=== PATIENT | male | born 1985 | race Caucasian/White ===

== ENCOUNTER 2018-05-04 20:26 | Inpatient (IN) | payer OTHER ==
[~2018-05-04] VITALS: Ht 166.4 cm; Wt 72.5 kg
[2018-05-05] VITALS (10 sets, daily range): BP systolic 120–127; BP diastolic 68–87; PULSE 61–78; RESP 14–17; Ht 166.4 cm; Wt 72.5 kg
[2018-05-05] MEDS ORDERED: ONDANSETRON 4 MG INJ IV PRN (02:00)
[2018-05-05] MEDS ORDERED: ACETAMINOPHEN 325 MG TAB PO PRN (02:00)
[2018-05-05] MEDS ORDERED: NACL 0.9% 3 ML SYG IV SCH (02:00)
[2018-05-05] MEDS ORDERED: NITROGLYCERIN (SL) 0.4 MG TAB SL PRN (02:00)
[2018-05-05] MEDS ORDERED: ALBUTEROL/IPRATROPIUM (NEB) 3 ML AMP HHN PRN (02:00)
--- NOTE | 2018-05-05 04:55 | HP ---
Date/Time of Note Date/Time of Note DATE: 05/05/18 TIME: 04:43 Assessment/Plan VTE Prophylaxis Pharmacological prophylaxis: heparin Lines/Catheters IV Catheter Type (from Nrsg): Saline Lock Assessment/Plan Assessment/Plan 32-year-old male with no significant past medical history with chest pain and abnormal EKG. Rule out ACS PLAN Telemetry monitoring Supplemental oxygen aspirin. As needed nitro A1c, fasting lipid, TSH in a.m. Trend troponin 2D echo and cardiology consult Result Diagram: 05/04/18221905/04/182219 Results 24hrs Laboratory Tests Test 05/04/18 22:20 05/05/18 03:15 White Blood Count 11.1 H Red Blood Count 5.15 Hemoglobin 14.9 Hematocrit 45.1 Mean Corpuscular Volume 87.6 Mean Corpuscular Hemoglobin 28.9 L Mean Corpuscular Hemoglobin Concent 33.0 Red Cell Distribution Width 12.8 Platelet Count 373 Mean Platelet Volume 9.1 Immature Granulocytes % 0.200 Neutrophils % 66.3 Lymphocytes % 21.2 Monocytes % 7.9 Eosinophils % 3.8 Basophils % 0.6 Nucleated Red Blood Cells % 0.0 Immature Granulocytes # 0.020 Neutrophils # 7.4 Lymphocytes # 2.4 Monocytes # 0.9 Eosinophils # 0.4 Basophils # 0.1 Nucleated Red Blood Cells # 0.0 Sodium Level 143 Potassium Level 4.2 Chloride Level 102 Carbon Dioxide Level 29 Anion Gap 12 Blood Urea Nitrogen 22 H Creatinine 0.90 Est Glomerular Filtrat Rate mL/min > 60 Glucose Level 94 Calcium Level 9.7 Total Bilirubin 0.1 L Direct Bilirubin 0.00 Indirect Bilirubin 0.1 Aspartate Amino Transf (AST/SGOT) 35 Alanine Aminotransferase (ALT/SGPT) 40 Alkaline Phosphatase 112 Troponin I < 0.012 < 0.012 B-Type Natriuretic Peptide 11 Total Protein 7.8 Albumin 4.6 Globulin 3.20 Albumin/Globulin Ratio 1.43 Lipase 29 Creatine Kinase 219 H Creatine Kinase Index 0.8 Creatinine Kinase MB (Mass) 1.83 HPI/ROS Admit Date/Time Admit Date/Time Hx of Present Illness This is a 32-year-old male with no significant past medical history who presented to the ER after sent by PCP for chest pain and abnormal EKG. Chest pain has been going on for about 3 weeks. It substernal and also left-sided. Denied associated nausea/vomiting, diaphoresis or shortness of breath. EKG shows ST depressions. Troponin negative. Chest x-ray without active findings. PMH/Family/Social Past Medical History Medications Current Medications IV Flush (NS 3 ml) 3 ml PER PROTOCOL IV ; Start 05/05/18 at 02:00 Ondansetron HCl (Zofran Inj) 4 mg Q6H PRN IV NAUSEA AND/OR VOMITING; Start 05/05/18 at 02:00 Aspirin (Aspirin) 81 mg DAILY PO ; Start 05/05/18 at 09:00 Nitroglycerin (Nitroglycerin (Sl Tab) 0.4 Mg) 1 tab Q5M PRN SL CHEST PAIN; Start 05/05/18 at 02:00 Acetaminophen (Tylenol Tab) 650 mg Q6H PRN PO PAIN LEVEL 1-3 OR FEVER; Start 05/05/18 at 02:00 Enoxaparin Sodium (Lovenox) 40 mg DAILY SC ; Start 05/05/18 at 09:00 Albuterol/ Ipratropium (Duoneb) 3 ml Q2H RESP THERAPY PRN HHN SHORTNESS OF BREATH; Start 05/05/18 at 02:00 Coded Allergies: No Known Allergy (Unverified , 05/04/18) Social History Smoking Status: Never smoker Exam/Review of Systems Vital Signs Vitals Vital Signs Date Temp Pulse Resp B/P (MAP) Pulse Ox O2 O2 Flow FiO2 Time Delivery Rate 05/04/18 78 20 110/79 100 Room Air 22:21 (89) 05/04/18 97.8 20:58 Exam Exam Constitutional: other (no acute distress) Head: normocephalic Respiratory: other (slight decreased at bases) Cardiovascular: regular rate and rhythm Gastrointestinal: soft Extremities: normal pulses PMH/Family/Social Past Medical History Medical History: other (see hpi) Coded Allergies: No Known Drug Allergy (Verified Allergy, Unknown, 12/19/15) Past Surgical History Past Surgical Hx: other (see hpi) Family History Significant Family History: no pertinent family hx Social History Alcohol Use: other Smoking Status: Unknown if ever smoked Drug Use: other YONG LIU MD May 05, 2018 04:55
--- NOTE | 2018-05-05 05:40 | ERD ---
ER Documentation Chief Complaint Chief Complaint mid sternal non radiating cp. sent fr MD office for abnormal ekg HPI 32-year-old male with midsternal burning chest pain on and off for the past 2 weeks. He saw his primary care physician to had an EKG in office which showed an abnormal EKG and was sent for further evaluation and management. Pain is mild to moderate intensity with no exacerbating alleviating factors. No shortness breath no palpitations. No family history. No other current complaints. ROS All systems reviewed and are negative except as per history of present illness. Allergies Allergies: Coded Allergies: No Known Allergy (Unverified , 05/04/18) PMhx/Soc Medical and Surgical Hx: pt denies Medical Hx, pt denies Surgical Hx History of Surgery: No Anesthesia Reaction: No Hx Neurological Disorder: No Hx Respiratory Disorders: No Hx Cardiac Disorders: No Hx Psychiatric Problems: No Hx Miscellaneous Medical Probl: No Hx Alcohol Use: Yes (OCASSIONALLY) Hx Substance Use: No Hx Tobacco Use: No Smoking Status: Never smoker Physical Exam Vitals Vital Signs Date Temp Pulse Resp B/P (MAP) Pulse Ox O2 O2 Flow FiO2 Time Delivery Rate 05/04/18 78 20 110/79 100 Room Air 22:21 (89) 05/04/18 97.8 77 20 129/79 99 20:58 (96) Physical Exam Const: No acute distress Head: Atraumatic Eyes: Normal Conjunctiva ENT: Normal External Ears, Nose and Mouth. Neck: Full range of motion. No meningismus. Resp: Clear to auscultation bilaterally Cardio: Regular rate and rhythm, no murmurs Abd: Soft, non tender, non distended. Normal bowel sounds Skin: No petechiae or rashes Back: No midline or flank tenderness Ext: No cyanosis, or edema Neur: Awake and alert Psych: Normal Mood and Affect Result Diagram: 05/04/18221905/04/182219 Results 24 hrs Laboratory Tests Test 05/04/18 22:20 05/05/18 03:15 White Blood Count 11.1 10^3/ul Red Blood Count 5.15 10^6/ul Hemoglobin 14.9 g/dl Hematocrit 45.1 % Mean Corpuscular Volume 87.6 fl Mean Corpuscular Hemoglobin 28.9 pg Mean Corpuscular Hemoglobin Concent 33.0 g/dl Red Cell Distribution Width 12.8 % Platelet Count 373 10^3/UL Mean Platelet Volume 9.1 fl Immature Granulocytes % 0.200 % Neutrophils % 66.3 % Lymphocytes % 21.2 % Monocytes % 7.9 % Eosinophils % 3.8 % Basophils % 0.6 % Nucleated Red Blood Cells % 0.0 /100WBC Immature Granulocytes # 0.020 10^3/ul Neutrophils # 7.4 10^3/ul Lymphocytes # 2.4 10^3/ul Monocytes # 0.9 10^3/ul Eosinophils # 0.4 10^3/ul Basophils # 0.1 10^3/ul Nucleated Red Blood Cells # 0.0 10^3/ul Sodium Level 143 mmol/L Potassium Level 4.2 mmol/L Chloride Level 102 mmol/L Carbon Dioxide Level 29 mmol/L Anion Gap 12 Blood Urea Nitrogen 22 mg/dl Creatinine 0.90 mg/dl Est Glomerular Filtrat Rate mL/min > 60 mL/min Glucose Level 94 mg/dl Calcium Level 9.7 mg/dl Total Bilirubin 0.1 mg/dl Direct Bilirubin 0.00 mg/dl Indirect Bilirubin 0.1 mg/dl Aspartate Amino Transf (AST/SGOT) 35 IU/L Alanine Aminotransferase (ALT/SGPT) 40 IU/L Alkaline Phosphatase 112 IU/L Troponin I < 0.012 ng/ml < 0.012 ng/ml B-Type Natriuretic Peptide 11 PG/ML Total Protein 7.8 g/dl Albumin 4.6 g/dl Globulin 3.20 g/dl Albumin/Globulin Ratio 1.43 Lipase 29 U/L Creatine Kinase 219 IU/L Creatine Kinase Index 0.8 Creatinine Kinase MB (Mass) 1.83 ng/ml Current Medications Medications Dose Sig/Fredy Start Time Status Last (Trade) Ordered Route PRN Stop Time Admin Dose Reason Admin IV Flush 3 ml PER 05/05/18 (NS 3 ml) PROTOCOL IV 02:00 Ondansetron 4 mg Q6H PRN 05/05/18 HCl (Zofran IV NAUSEA 02:00 Inj) AND/OR VOMITING Aspirin 81 mg DAILY PO 05/05/18 (Aspirin) 09:00 1 tab Q5M PRN 05/05/18 Nitroglycerin SL CHEST 02:00 PAIN (Nitroglyceri n (Sl Tab) 0.4 Mg) 650 mg Q6H PRN 05/05/18 Acetaminophen PO PAIN 02:00 (Tylenol LEVEL 1-3 OR Tab) FEVER Enoxaparin 40 mg DAILY SC 05/05/18 Sodium 09:00 (Lovenox) Albuterol/ 3 ml Q2H RESP 05/05/18 Ipratropium THERAPY PRN 02:00 (Duoneb) HHN SHORTNESS OF BREATH Procedures/MDM EKG: Rate/Rhythm: [Normal Sinus Rhythm] QRS, ST, T-waves: Depressions V5 and V6 Impression: [No evidence of ischemia or arrhythmia] Chest X-ray 1V Interpreted by me: Soft Tissue: No acute abnormalities Bones: No acute abnormalities Mediastinum/Cardiac Silhouette/Lungs: [No acute abnormalities] Patient's symptoms are concerning for cardiac cause will require inpatient workup and continuous monitoring. Further w/u for ischemia, arrhythmia, PE or dissection will be deferred to the inpatient team. Given abnormal EKG, I feel the patient is to be admitted for further evaluation and management Accepting Care Team: Current data and ongoing care discussed. Time: 1140 Primary Provider: Hospitalist Consulting: Deferred to inpatient team Outstanding Data: none Departure Diagnosis: Primary Impression: Chest pain Chest pain type: unspecified Qualified Codes: R07.9 - Chest pain, unspecified Condition: Serious YONG SANCHEZ May 05, 2018 05:39
[2018-05-05] MEDS ORDERED: ENOXAPARIN 40 MG/0.4 ML SYG SC SCH (09:00)
[2018-05-05] MEDS ORDERED: ASPIRIN 81 MG TAB PO SCH (09:00)
[2018-05-05] MEDS ORDERED: ASPI-831 PO (13:31)
--- NOTE | 2018-05-05 13:32 | DS ---
Date/Time of Note Date/Time of Note DATE: 05/05/18 TIME: 13:32 Discharge Summary Admission/Discharge Info Admit Date/Time May 04, 2018 at 23:34 Discharge Date/Time Discharge Diagnosis * chest pain: ACS ruled out * mild hypercholesterolemia * mild rhabdomyolysis : resolved . Patient Condition: Stable Hospital Course 32-year-old male with no significant past medical who had presented with chest pain and was referred from his primary care doctor because of the concern for abnormal EKG. he was ruled out for an acute coronary syndrome, 2D echo showed ejection fraction of 60% with no significant valvular abnormality. He has been mild rhabdomyolysis that has resolved. He was also found to have a mild hypercholesterolemia was advised on diet and exercise. He is being discharged now to follow-up with his primary care doctor for continued evaluation including possible cardiology referral. This has been communicated to him in detail. He has verbalized understanding. Comorbidities were also aggressively managed as per Med records. Patient at this time has been evaluated and examined in detail and is assessed to be in stable condition and ready for discharge. . Home Meds Active Scripts Aspirin (Aspirin) 81 Mg Chew, 81 MG PO DAILY, #30 TAB 2 Refills Prov:ASHKAN DURANPhoebe Taylor 05/05/18 Primary Care Provider [facility] Time spent on discharge: > 30 minutes Pending Labs Laboratory Tests Test 05/04/18 22:20 05/05/18 03:15 05/05/18 07:31 05/05/18 07:32 White Blood 11.1 9.6 Count 10^3/ul (4.8-10 10^3/ul (4.8-1 .8) 0.8) Red Blood 5.15 5.02 Count 10^6/ul (4.70-6 10^6/ul (4.70- .10) 6.10) Hemoglobin 14.9 14.5 g/dl (14.0-18.0 g/dl (14.0-18. ) 0) Hematocrit 45.1 43.5 % (42.0-52.0) % (42.0-52.0) Mean 87.6 86.7 Corpuscular fl (82.0-101.0) fl (82.0-101.0 Volume ) Mean 28.9 28.9 Corpuscular pg (29.0-33.0) pg (29.0-33.0) Hemoglobin Mean 33.0 33.3 Corpuscular g/dl (32.0-37.0 g/dl (32.0-37. Hemoglobin Conc ) 0) ent Red Cell 12.8 12.7 Distribution % (11.5-14.5) % (11.5-14.5) Width Platelet Count 373 391 10^3/UL (140-41 10^3/UL (140-4 5) 15) Mean Platelet 9.1 9.2 Volume fl (7.4-10.4) fl (7.4-10.4) Immature 0.200 0.300 Granulocytes % % (0.001-0.429) % (0.001-0.429 ) Neutrophils % 66.3 71.4 % (39.0-77.0) % (39.0-77.0) Lymphocytes % 21.2 18.8 % (15.0-51.0) % (15.0-51.0) Monocytes % 7.9 5.7 % (0.0-11.0) % (0.0-11.0) Eosinophils % 3.8 % (0.0-7.0) 3.2 % (0.0-7.0) Basophils % 0.6 % (0.0-2.0) 0.6 % (0.0-2.0) Nucleated Red 0.0 0.0 Blood Cells % /100WBC (0.0-0. /100WBC (0.0-0 0) .0) Immature 0.020 0.030 Granulocytes # 10^3/ul (0.0-0. 10^3/ul (0.0-0 031) .031) Neutrophils # 7.4 6.9 10^3/ul (1.6-7. 10^3/ul (1.6-7 5) .5) Lymphocytes # 2.4 1.8 10^3/ul (0.8-2. 10^3/ul (0.8-2 9) .9) Monocytes # 0.9 0.6 10^3/ul (0.3-0. 10^3/ul (0.3-0 9) .9) Eosinophils # 0.4 0.3 10^3/ul (0.0-0. 10^3/ul (0.0-0 5) .5) Basophils # 0.1 0.1 10^3/ul (0.0-0. 10^3/ul (0.0-0 1) .1) Nucleated Red 0.0 0.0 Blood Cells # 10^3/ul (0.0-0. 10^3/ul (0.0-0 0) .0) Sodium Level 143 141 mmol/L (135-144 mmol/L (135-14 ) 4) Potassium 4.2 4.1 Level mmol/L (3.5-5.1 mmol/L (3.5-5. ) 1) Chloride Level 102 102 mmol/L (97-110) mmol/L (97-110 ) Carbon Dioxide 29 27 Level mmol/L (21-31) mmol/L (21-31) Anion Gap 12 (5-13) 12 (5-13) Blood Urea 22 mg/dl (7-20) 17 Nitrogen mg/dl (7-20) Creatinine 0.90 0.77 mg/dl (0.61-1.2 mg/dl (0.61-1. 4) 24) Est Glomerular > 60 > 60 Filtrat mL/min (>60) mL/min (>60) Rate mL/min Glucose Level 94 106 mg/dl (70-220) mg/dl (70-220) Calcium Level 9.7 9.9 mg/dl (8.4-10.2 mg/dl (8.4-10. ) 2) Total 0.1 0.2 Bilirubin mg/dl (0.2-1.3) mg/dl (0.2-1.3 ) Direct 0.00 0.00 Bilirubin mg/dl (0.00-0.2 mg/dl (0.00-0. 0) 20) Indirect 0.1 0.2 Bilirubin mg/dl (0-1.1) mg/dl (0-1.1) Aspartate Amino 35 IU/L (15-46) 36 Transf (AST/SGO IU/L (15-46) T) Alanine 40 IU/L (13-69) 47 Aminotransferas IU/L (13-69) e (ALT/SGPT) Alkaline 112 113 Phosphatase IU/L (42-121) IU/L (42-121) Troponin I < 0.012 < 0.012 < 0.012 ng/ml (0.000-0. ng/ml (0.000-0 ng/ml (0.000-0 120) .120) .120) B-Type 11 Natriuretic PG/ML (0-125) Peptide Total Protein 7.8 7.8 g/dl (6.1-8.1) g/dl (6.1-8.1) Albumin 4.6 4.5 g/dl (3.3-4.9) g/dl (3.3-4.9) Globulin 3.20 3.30 g/dl (1.3-3.2) g/dl (1.3-3.2) Albumin/Globuli 1.43 1.36 n Ratio Lipase 29 U/L (23-300) Creatine 219 196 Kinase IU/L (23-200) IU/L (23-200) Creatine Kinase 0.8 0.8 Index Creatinine 1.83 1.61 Kinase MB ng/ml (0.0-2.4 ng/ml (0.0-2.4 (Mass) ) ) Hemoglobin A1c 5.6 % (0-5.9) Triglycerides 134 Level mg/dl (0-149) Cholesterol 219 Level mg/dl (100-200 ) LDL 140 mg/dl Cholesterol, Calculated HDL 52 Cholesterol mg/dl (28-63) Cholesterol/HDL 4.2 RATIO Ratio Thyroid 0.829 Stimulating MIU/L (0.465-4 Hormone (TSH) .680) Test 05/05/18 09:00 Urine Opiates Negative (NEGAT Screen DONALD) Urine Negative (NEGAT Barbiturates DONALD) Urine Negative (NEGAT Amphetamines DONALD) Screen Urine Negative (NEGAT Benzodiazepines DONALD) Screen Urine Cocaine Negative (NEGAT Screen DONALD) Urine Negative (NEGAT Cannabinoids DONALD) GORAN DURAN May 05, 2018 13:32
--- NOTE | 2018-05-05 13:34 | PDOCDIS ---
Discharge Instructions CONDITION [id number] Patient Condition: [id number] Stable HOME CARE INSTRUCTIONS: [id number] Diet Instructions: [id number] Low Fat /Cholesterol ACTIVITY: [id number] Activity Restrictions: [id number] Slowly Increase Activity Rest between Activity FOLLOW UP/APPOINTMENTS Follow-up Plan We have asked for insurance authorization you to see a cns, you may followup with your insurance company for this . GORAN DURAN May 05, 2018 13:34
--- NOTE | 2018-05-05 14:54 | RADRPT ---
Echocardiogram Report Patient Name: NELSON CYR Gender: Male Date: 1985 Study Date: 05-May-2018 Senior Management Consultant: Brandon Cobb RDCS Location: [facility] Ref. Physician: YONG LIU Quality: Good Procedures: Transthoracic echocardiogram with complete 2D, M-Mode, and doppler examination. Indications: Chest Pain, ST depression. 2D/M Mode Doppler Measurement Value Normal Ranges Measurement Value Normal Ranges LVIDd 2D 4.1 3.5 - 5.6 cm AV Peak Mino 1.0 m/sec LVIDs 2D 2.8 2.1 - 4.1 cm AV Peak PG 4.0 mmHg LVPWd 2D 0.9 0.6 - 1.1 cm LVOT Peak Mino 0.8 m/sec IVSd 2D 0.9 0.6 - 1.1 cm LVOT Peak PG 2.0 mmHg AoR Diam 2D 2.9 2.0 - 3.7 cm MV E Peak Mino 0.8 m/sec LA/Ao 2D 1 0 - 1 MV A Peak Mino 0.5 m/sec LA Dimen 2D 2.8 2.3 - 4.0 cm MV E/A 1.8 MV Decel Time 246 msec Lat E` Mino 0.1 m/sec Lateral E/E` 5.9 Med E` Mino 0.1 m/sec MV E/A 1.8 TR Peak Mino 2.0 m/sec TR Peak PG 16.0 mmHg RVSP 19.0 mmHg RA Pressure 3.0 Findings Left Ventricle: Normal left ventricular systolic function. Normal left ventricular cavity size. Normal left ventricular wall thickness. Ejection fraction is visually estimated at 60 %. Tissue Doppler/Mitral Doppler indices are within normal limits. Right Ventricle: Normal right ventricular size. Normal right ventricular systolic function. Left Atrium: The left atrium is normal in size. Right Atrium: The right atrium is normal in size. Mitral Valve: Mitral valve leaflets appear mildly thickened. Mild mitral annular calcification. Trace mitral regurgitation. Aortic Valve: Normal appearance of the aortic valve. No significant aortic stenosis or insufficiency. Tricuspid Valve: Normal appearance of the tricuspid valve. Estimated peak PA systolic pressure 19 mmHg. There is trace tricuspid regurgitation. Pulmonic Valve: Normal pulmonic valve appearance. Pericardium: Normal pericardium with no significant pericardial effusion. Aorta: Normal aortic root. IVC: Normal size and normal respiratory collapse consistent with normal right atrial pressure. Conclusions Normal left ventricular systolic function. Normal left ventricular cavity size. Normal left ventricular wall thickness. Ejection fraction is visually estimated at 60 %. Tissue Doppler/Mitral Doppler indices are within normal limits. Normal right ventricular size. Normal right ventricular systolic function. The left atrium is normal in size. The right atrium is normal in size. No significant valvular stenosis or regurgitation seen. Normal pericardium with no significant pericardial effusion. Electronically Signed By: Ace Wesley 05-May-2018 14:54:04 -0800 Patient Name: NELSON CYR Study Date: 05-May-2018 [id number]
--- NOTE | 2018-05-05 15:40 | NUR ---
EF is 60%, ok to DC pt home per Dr Montilla.
--- NOTE | 2018-05-05 16:22 | NUR ---
Pt is AO x 4, steady gait, no complaints on chest pain. RA, 02 sat 99% DC instructions provided to pt, states understanding. automation engineering manager is consulted. Patient will follow up with appointment with Dr Phillip within 2 weeks after DC home. DC home via wheelchair and volunteer.
== END 2018-05-05 16:20 | disposition home or self-care (01) | DRG 313 ==
LOC: E/R 20:26 → ICU 23:34
PROVIDERS: ADMIT Internal Medicine; ATTEND Internal Medicine
DX: R07.9 Chest pain, unspecified (principal); M62.82 Rhabdomyolysis; E78.00 Pure hypercholesterolemia, unspecified
CPT/HCPCS: 36415; 71045; 80053; 80061; 80307; 82550; 82553; 83036; 83690; 83880; 84443; 84484; 85025; 93005; 93306; J1650